=== PATIENT | male | born 1970 | race Caucasian/White ===

== ENCOUNTER 2017-03-12 10:13 | Emergency (ER) | payer OTHER ==
[~2017-03-12] VITALS: Wt 77.1 kg
[~2017-03-12 10:13] MED LIST: AUGMENTIN 875 M1 TAB PO; NKHM; VICODIN 500 MG-1 TAB PO
[2017-03-12] MEDS ORDERED: SEPTDS PO (11:02)
[2017-03-12] MEDS ORDERED: CEPHALEXIN500 M1 PO (11:02)
== END 2017-03-12 11:14 | disposition home or self-care (01) ==
LOC: ED 10:13
DX: L02.415 Cutaneous abscess of right lower limb (principal); F17.200 Nicotine dependence, unspecified, uncomplicated; Z88.5 Allergy status to narcotic agent